=== PATIENT | female | born 1955 | race Caucasian/White ===

== ENCOUNTER 2017-06-26 08:14 | Inpatient (IN) | payer OTHER ==
[~2017-06-26] VITALS: Ht 167.6 cm; Wt 70.3 kg
[2017-06-26 09:14] LABS: PLATELET COUNT 12 x10^3mcL (130-400); RED CELL DISTRIBUTION WIDTH 18.3 % (11.5-14.5)
[2017-06-26 09:21] LABS: BILIRUBIN TOTAL 2.62 mg/dL (0.20-1.00); CALCIUM 8.8 mg/dL (8.5-10.1); CARBON DIOXIDE 14.3 mmol/L (21-32); CREATININE SERUM 2.7 mg/dL (0.6-1.0)
[2017-06-26 09:39] LABS: ALBUMIN 2.4 g/dL (3.4-5.0); TOTAL PROTEIN, SERUM 5.6 g/dL (6.4-8.2)
[2017-06-26 09:52] LABS: microscopic required? YES; urine erythrocyte 3+ (NEGATIVE)
[2017-06-26 10:04] LABS: AMPHETAMINE QUAL UR NONE DETECTED (NEG <=1000)
[2017-06-26 10:16] VITALS: BP 67/38
[2017-06-26 10:32] LABS: BAND NEUTROPHIL 34 % (0-10); BASOPHIL 0 % (0-2); METAMYELOCTE 3 % (0-2); MONOCYTE 3 % (0-7); MYELOCYTE 1 % (0-2); SEGMENTED NEUTROPHILS 54 % (37-75)
[2017-06-26 10:34] LABS: rbc morphology (normal/abnorm) ABNORMAL (NORMAL)
[2017-06-26 10:35] LABS: PLATELET MORPHOLOGY PLATELETS DECREASED; schistocyte (helmet cell) 1+; tear drop cell (dacryocyte) 1+
[2017-06-26] MEDS ORDERED: COR3 (10:56)
[2017-06-26] MEDS ORDERED: LISINOPRIL2.5 MG (10:56)
[2017-06-26 11:56] LABS: MAGNESIUM 1.9 mg/dL (1.8-2.4); PHOSPHOROUS 6.2 mg/dL (2.5-4.9)
[2017-06-26 11:59] LABS: CHOLESTEROL/HDL RATIO 2.6
[2017-06-26 12:05] VITALS: BP 83/41
[2017-06-26 12:05] LABS: FREE T4 1.59 ng/dL (0.76-1.46); FREE THYROXINE INDEX 4.1 ug/dL (1.4-4.5)
[2017-06-26 12:17] LABS: T3 TOTAL 0.53 ng/mL
[2017-06-26 12:33] VITALS: BP 72/40
[2017-06-26 14:10] VITALS: BP 91/63
[2017-06-26 15:15] VITALS: BP 79/52
[2017-06-26 15:34] LABS: CALCIUM 7.1 mg/dL (8.5-10.1); CARBON DIOXIDE 13.6 mmol/L (21-32); CREATININE SERUM 2.3 mg/dL (0.6-1.0)
[2017-06-26 15:36] LABS: POTASSIUM SERUM 6.3 mmol/L (3.5-5.1)
[2017-06-26 16:21] VITALS: BP 94/61
== END 2017-06-26 21:00 | disposition expired | DRG 871 ==
LOC: ED 08:14 → IC 10:43
PROVIDERS: Emergency Medicine; ADMIT Family Medicine
DX: A41.9 Sepsis, unspecified organism (principal); R65.21 Severe sepsis with septic shock; J96.00 Acute respiratory failure, unspecified whether with hypoxia or hypercapnia; N17.0 Acute kidney failure with tubular necrosis; E43 Unspecified severe protein-calorie malnutrition; J69.0 Pneumonitis due to inhalation of food and vomit; I50.43 Acute on chronic combined systolic (congestive) and diastolic (congestive) heart failure; M62.82 Rhabdomyolysis; C95.00 Acute leukemia of unspecified cell type not having achieved remission; E87.1 Hypo-osmolality and hyponatremia; E87.5 Hyperkalemia; E11.65 Type 2 diabetes mellitus with hyperglycemia; E83.39 Other disorders of phosphorus metabolism; D64.9 Anemia, unspecified; D69.6 Thrombocytopenia, unspecified; I46.9 Cardiac arrest, cause unspecified; I45.10 Unspecified right bundle-branch block; I11.0 Hypertensive heart disease with heart failure
CPT/HCPCS: 36600; 82962; 83880; 84439; G0480; J1956; J2020; J2185; J2310; J2543; J2930; J3370; J3490; J7030; J7040; J7050; Q0092